=== PATIENT | female | born 1965 ===

== ENCOUNTER 2016-07-10 17:15 | Emergency (ER) | END 2016-07-10 18:05 | disposition left against medical advice (07) | LOC: UCCORT 17:15 | DX: R05 Cough (principal); R09.89 Other specified symptoms and signs involving the circulatory and respiratory systems; M79.1 Myalgia; Z53.21 Procedure and treatment not carried out due to patient leaving prior to being seen by health care provider | CPT/HCPCS: 99201; G0463 ==